=== PATIENT | female | born 1995 | race African-American/Black ===

== ENCOUNTER 2017-11-24 20:58 | Emergency (ER) | payer MEDICAID ==
[~2017-11-24] VITALS: Ht 162.6 cm; Wt 42.7 kg
[2017-11-24 21:20] LABS: CULTURE INDICATED? YES; MICROSCOPIC AUTO
[2017-11-24 21:37] LABS: HCG UR SG 1.009 (1.003-1.030)
[2017-11-24 23:02] VITALS: BP 116/79
== END 2017-11-24 23:06 | disposition home or self-care (01) ==
LOC: ED 22:19
DX: N12 Tubulo-interstitial nephritis, not specified as acute or chronic (principal); N30.90 Cystitis, unspecified without hematuria; N39.0 Urinary tract infection, site not specified
CPT/HCPCS: 81001; 81025; 87086; 99284

== ENCOUNTER 2021-03-04 09:17 | Emergency (ER) | payer MEDICAID ==
[~2021-03-04] VITALS: Ht 165.1 cm; Wt 43.1 kg
--- NOTE | 2021-03-04 09:29 | NUR ---
pt ambulated to room from triage, changed into gown, monitors in place. PA at bs. no needs at this time
--- NOTE | 2021-03-04 09:44 | NUR ---
PT AMBULATED TO BR WITH UPRIGHT, STEADY GAIT.
--- NOTE | 2021-03-04 09:53 | NUR ---
PT TO ULTRASOUND
[2021-03-04 10:05] LABS: BASOPHILS % (AUTO) 1 % (0-1); EOSINOPHILS % (AUTO) 1 % (1-7); LYMPHOCYTES % (AUTO) 24 % (22-44); MEAN CORPUSCULAR HEMOGLOBIN 32.1 pg (27.0-34.8); MEAN CORPUSCULAR HGB CONC 34.4 g/dL (32.4-35.8); MEAN PLATELET VOLUME 7.2 fL (7.4-10.4); MONOCYTES % (AUTO) 4 % (2-9); NEUTROPHILS % (AUTO) 70 % (42-75); PLATELET COUNT 433 x10^3/uL (130-400); RED BLOOD COUNT 4.44 x10^6/uL (3.82-5.3); RED CELL DISTRIBUTION WIDTH 12.5 % (9.6-15.2)
[2021-03-04 10:08] LABS: MICROSCOPIC AUTO
[2021-03-04 10:12] LABS: MD NO
[2021-03-04 10:17] LABS: ALBUMIN 3.9 g/dL (3.4-5.0); ANION GAP 5 mmol/L (5-15); CALCIUM 8.7 mg/dL (8.5-10.1); CHLORIDE 108 mmol/L (98-107)
[2021-03-04 10:23] LABS: ALANINE AMINOTRANSFERASE 16 U/L (12-78); ALKALINE PHOSPHATASE 52 U/L (45-117); CREATININE 0.78 mg/dL (0.55-1.02); TOTAL PROTEIN 7.9 g/dL (6.4-8.2)
[2021-03-04 10:46] VITALS: BP 127/83
--- NOTE | 2021-03-04 10:47 | NUR ---
PT SITTING COMFORTABLY ON GURNEY ON HER PHONE. PT COMPLAINS OF PAIN 06/27. NADN/VSS. CALL LIGHT WITHIN REACH. NO NEEDS AT THIS TIME.
--- NOTE | 2021-03-04 11:08 | NUR ---
Patient given discharge instructions and rx, they have confirmed that they understand the instructions. Patient ambulatory with steady gait.
== END 2021-03-04 11:03 | disposition home or self-care (01) ==
LOC: ED 11:03
DX: N83.291 Other ovarian cyst, right side (principal); R10.32 Left lower quadrant pain
CPT/HCPCS: 36415; 76770; 76830; 80053; 81001; 84703; 85025; 87086; 99285